=== PATIENT | male | born 1955 ===

== ENCOUNTER 2022-01-26 13:23 | Outpatient (CLI) | payer MEDICARE | END 2022-01-26 13:24 | disposition home or self-care (01) | LOC: CSHLAB 13:23 | PROVIDERS: ATTEND Internal Medicine Cardiovascular Disease | DX: Z20.822 Contact with and (suspected) exposure to COVID-19 (principal) | CPT/HCPCS: 87811 ==

== ENCOUNTER 2022-01-31 09:21 | Outpatient (CLI) | payer MEDICARE | END 2022-01-31 09:22 | disposition home or self-care (01) | LOC: CSHCP 09:21 | PROVIDERS: ATTEND Internal Medicine Cardiovascular Disease | DX: R06.09 Other forms of dyspnea (principal); J98.4 Other disorders of lung | CPT/HCPCS: 94060; 94726; 94729; 94760 ==